=== PATIENT | female | born 2005 | race African-American/Black ===

== ENCOUNTER 2023-04-04 14:41 | Emergency (ER) | payer SELFPAY ==
[~2023-04-04] VITALS: Ht 160 cm; Wt 53.1 kg
[2023-04-04 14:53] VITALS: O2SAT 100
[2023-04-04 15:26] LABS: CLARITY URINE CLOUDY (CLEAR); COLOR URINE PALE YELLOW (YELLOW); PROTEIN URINE NEGATIVE (NEGATIVE); SPECIFIC GRAVITY URINE <1.005 (1.005-1.030)
[2023-04-04 15:27] LABS: GLUCOSE URINE NEGATIVE (NEGATIVE); KETONES URINE NEGATIVE (NEGATIVE); LEUKOCYTE ESTERASE URINE NEGATIVE (NEGATIVE); NITRITE URINE NEGATIVE (NEGATIVE); OCCULT BLOOD URINE 3+ (NEGATIVE); UROBILINOGEN URINE 0.2 E.U./dL (0.2-1.0)
[2023-04-04 15:40] LABS: BACTERIA URINE 2+; RBC URINE 0-2 /hpf (0-2); SQUAMOUS EPITHELIAL CELL URINE 2+ /lpf (RARE/1+); WBC URINE 0-2 /hpf (0-2)
[2023-04-04] MEDS ORDERED: CEFTRIAXONE SODIUM 500 MG/VIAL IM ONE (16:15)
[2023-04-04] MEDS ORDERED: DOXY100C5 MT (16:25)
[2023-04-04 17:09] VITALS: BP 135/84; PULSE 86; RESP 18; TEMP 97.9
[2023-04-06 09:06] LABS: CHLAMYDIA TRACHOMATIS NAA Negative (Negative); NEISSERIA GONORRHOEAE NAA Negative (Negative)
== END 2023-04-04 17:11 | disposition home or self-care (01) ==
LOC: ER 14:41
DX: R30.0 Dysuria (principal); A64 Unspecified sexually transmitted disease
CPT/HCPCS: 99283; 87491; 87591; 81003; 81025; J0696

== ENCOUNTER 2023-05-24 12:48 | Emergency (ER) | payer SELFPAY ==
[~2023-05-24] VITALS: Ht 160 cm; Wt 53.0 kg
[~2023-05-24 12:48] MED LIST: DOXY100C5 MT
[2023-05-24 12:55] VITALS: BP 107/71; PULSE 89; RESP 16; TEMP 98.1; O2SAT 100
== END 2023-05-24 19:14 | disposition left against medical advice (07) ==
LOC: ER 12:48
DX: A64 Unspecified sexually transmitted disease (principal)
CPT/HCPCS: 99281

== ENCOUNTER 2023-05-30 14:09 | Emergency (ER) | payer SELFPAY ==
[~2023-05-30] VITALS: Ht 160 cm; Wt 53.0 kg
[2023-05-30 14:13] VITALS: RESP 14
[2023-05-30 14:17] VITALS: BP 115/60; PULSE 87; TEMP 99.8; O2SAT 100
[2023-05-30 16:01] LABS: BASOPHILS % 0.7 % (0.0-2.0); EOSINOPHILS % 3.3 % (0.0-5.0); HEMOGLOBIN. 12.2 g/dL (12.0-16.0); LYMPHOCYTES % 24.8 % (20.0-50.0); MEAN CORPUSCULAR HGB CONC 33.9 g/dL (31.0-37.0); MEAN CORPUSCULAR VOLUME 97.3 fL (81.0-99.0); MEAN PLATELET VOLUME 7.4 fl (7.4-10.4); NEUTROPHILS % 62.2 % (40.0-76.0); PLATELET 331 x1000/uL (130-400); RED CELL DISTRIBUTION WIDTH 13.6 % (11.6-14.6); WHITE BLOOD COUNT 5.8 x1000/uL (4.5-11.0)
[2023-05-30 16:13] LABS: HCG SCREEN NEGATIVE
[2023-05-30 16:20] LABS: ALANINE AMINOTRANSFERASE 15 IU/L (10-49); ALBUMIN 4.4 g/dL (3.2-4.8); ASPARTATE AMINOTRANSFERASE 19 IU/L (<34); BILIRUBIN TOTAL 0.3 mg/dL (0.1-1.0); CALCIUM 9.2 mg/dL (8.7-10.4); CARBON DIOXIDE 23 mEq/L (21-32); CHLORIDE 106 mEq/L (98-107); CREATININE 0.6 mg/dL (0.6-1.0); GLUCOSE 76 mg/dL (70-105); POTASSIUM 4.1 mEq/L (3.5-5.1); PROTEIN TOTAL 8.2 g/dL (6.0-8.3); SODIUM 137 mEq/L (136-145); UREA NITROGEN BLOOD 13 mg/dL (9-23)
[2023-05-30] MEDS ORDERED: CEFTRIAXONE SODIUM 500 MG/VIAL IM ONE (17:00)
[2023-05-30] MEDS ORDERED: DOXY100T28 MT (17:00)
[2023-05-30 19:02] LABS: CLARITY URINE CLEAR (CLEAR); COLOR URINE YELLOW (YELLOW); GLUCOSE URINE NEGATIVE (NEGATIVE); KETONES URINE NEGATIVE (NEGATIVE); LEUKOCYTE ESTERASE URINE NEGATIVE (NEGATIVE); NITRITE URINE NEGATIVE (NEGATIVE); OCCULT BLOOD URINE NEGATIVE (NEGATIVE); PROTEIN URINE NEGATIVE (NEGATIVE); SPECIFIC GRAVITY URINE 1.007 (1.005-1.030); UROBILINOGEN URINE 0.2 E.U./dL (0.2-1.0)
[2023-06-02 05:07] LABS: CHLAMYDIA TRACHOMATIS NAA Negative (Negative); NEISSERIA GONORRHOEAE NAA Negative (Negative)
== END 2023-05-30 17:36 | disposition home or self-care (01) ==
LOC: ER 14:09
DX: A64 Unspecified sexually transmitted disease (principal); R10.2 Pelvic and perineal pain; J02.9 Acute pharyngitis, unspecified
CPT/HCPCS: 99285; 76830; 76856; 87491; 87591; 80053; 81003; 84703; 85025; 36415; 96372; J0696